=== PATIENT | male | born 1965 | race Caucasian/White ===

== ENCOUNTER → 2020-05-22 | Outpatient (CLI) | payer BC, SELFPAY ==
[~2020-05-22] MED LIST: ASPIRIN81 MG PO; CARDIZEM CD240 MG PO; IMDUR ER TAB 3030 MG PO; K-DUR TAB 20 M20 MEQ PO; LIPITOR TAB 2020 MG PO; NITROGLYCERIN0.4 MG SL; PRAVACHOL40 MG PO; PROTONIX 40 MG40 M1 PO; TESTOSTERO200 MG/11 IM; ZANTAC150 MG PO; ZYLOPRIM 300 M300 MG PO
== END ==
LOC: KOH-I 08:26
DX: R10.11 Right upper quadrant pain (principal); K76.0 Fatty (change of) liver, not elsewhere classified
CPT/HCPCS: 76705

== ENCOUNTER → 2020-07-28 | Outpatient (CLI) | payer BC | LOC: KOH-I 15:10 | DX: R13.19 Other dysphagia (principal) | CPT/HCPCS: 76536 ==

== ENCOUNTER → 2020-09-05 | Outpatient (CLI) | payer BC | LOC: NM 13:55 | DX: R10.11 Right upper quadrant pain (principal) | CPT/HCPCS: 78226; A9537 ==

== ENCOUNTER → 2020-11-01 | Outpatient (CLI) | payer BC ==
[~2020-11-01] MED LIST changes: +ASPIRIN CHEWABL81 MG PO
== END ==
LOC: CT 09:30
DX: R10.9 Unspecified abdominal pain (principal)
CPT/HCPCS: 36415; 82565; 84520; Q9967

== ENCOUNTER 2021-01-24 02:31 | Emergency (ER) | payer BC ==
[~2021-01-24 02:31] MED LIST changes: -ASPIRIN CHEWABL81 MG PO
[2021-01-24 03:29] LABS: HEMOGLOBIN 15.4 gm/dl (14.0-17.5); RED BLOOD COUNT 4.8 M/UL (4.20-5.50); WHITE BLOOD COUNT 8.1 K/UL (4.5-11.0)
[2021-01-24 03:52] LABS: BUN/CREATININE RATIO 11 (0-10)
[2021-01-24] MEDS ORDERED: ASPIRIN CHEWABL81 MG PO (06:56)
== END 2021-01-24 07:35 | disposition home or self-care (01) ==
LOC: ER1 02:31
PROVIDERS: Family Medicine
DX: U07.1 COVID-19 (principal); J12.82 Pneumonia due to coronavirus disease 2019; I10 Essential (primary) hypertension
CPT/HCPCS: 71045; 80053; 82550; 82553; 83615; 83874; 84484; 85025; 85379; 86140; 93005; 99285

== ENCOUNTER 2021-03-23 00:28 | Emergency (ER) | payer BC ==
[~2021-03-23 00:28] MED LIST changes: +ASPIRIN CHEWABL81 MG PO
[2021-03-23 01:30] LABS: HEMOGLOBIN 15.8 gm/dl (14.0-17.5); RED BLOOD COUNT 4.97 M/UL (4.20-5.50); WHITE BLOOD COUNT 8.1 K/UL (4.5-11.0)
[2021-03-23 01:51] LABS: BUN/CREATININE RATIO 9 (0-10)
== END 2021-03-23 03:48 | disposition home or self-care (01) ==
LOC: ER1 00:28
PROVIDERS: Family Medicine
DX: R20.2 Paresthesia of skin (principal); E78.5 Hyperlipidemia, unspecified; I10 Essential (primary) hypertension
CPT/HCPCS: 70450; 80053; 82550; 82553; 83874; 84484; 85025; 93005; 99284

== ENCOUNTER → 2021-11-28 | Outpatient (CLI) | payer BC | LOC: KOH-I 11-23 08:00 | DX: L03.211 Cellulitis of face (principal); J32.2 Chronic ethmoidal sinusitis | CPT/HCPCS: 70486 ==